=== PATIENT | female | born 2000 | race Caucasian/White ===

== ENCOUNTER 2021-07-23 01:56 | Emergency (ER) | payer SELFPAY ==
[~2021-07-23] VITALS: Ht 165.1 cm; Wt 50.0 kg
[2021-07-23] MEDS ORDERED: ACETAMINOPHEN 325MG TABLET PO ONE (03:15)
[2021-07-23] MEDS ORDERED: NAPR-1176 MT (04:45)
[2021-07-23] MEDS ORDERED: TOPUD MT (04:45)
[2021-07-23] MEDS ORDERED: ACETAMINOPHEN 325MG TABLET PO SCH (05:00)
[2021-07-23 05:48] VITALS: BP 124/80
== END 2021-07-23 05:05 | disposition home or self-care (01) ==
LOC: ER 01:56
DX: S09.8XXA Other specified injuries of head, initial encounter (principal); M25.551 Pain in right hip; V49.49XA Driver injured in collision with other motor vehicles in traffic accident, initial encounter; Y93.89 Activity, other specified; Y92.89 Other specified places as the place of occurrence of the external cause; Y99.8 Other external cause status; F10.229 Alcohol dependence with intoxication, unspecified; Y90.0 Blood alcohol level of less than 20 mg/100 ml
CPT/HCPCS: 73502; 81025; 99284